=== PATIENT | male | born 1950 | race Caucasian/White ===

== ENCOUNTER → 2019-09-26 | Outpatient (CLI) | payer OTHER ==
[2019-09-26 08:52] LABS: URINE BILIRUBIN NEGATIVE (Negative); URINE BLOOD NEGATIVE (Negative); URINE CLARITY CLEAR; URINE COLOR YELLOW; URINE GLUCOSE-RANDOM NEGATIVE (Negative); URINE KETONES NEGATIVE (Negative); URINE LEUKOCYTES NEGATIVE (Negative); URINE NITRITE NEGATIVE (Negative); URINE PROTEIN NEGATIVE (Negative); URINE UROBILINOGEN 0.2 E.U./dl (0.2-1.0)
[2019-09-26 08:57] LABS: ALBUMIN 4.5 g/dL (3.4-5.0); CALCIUM 8.9 mg/dL (8.5-10.1); CREATININE 1.2 mg/dL (0.6-1.3); POTASSIUM 4.7 mmol/L (3.5-5.1); TOTAL BILIRUBIN 0.6 mg/dL (<0.1-1.0); TOTAL PROTEIN 7.5 g/dL (6.4-8.2)
--- NOTE | 2019-09-26 09:54 | 2DMMODE ---
[place] [address] 2 D/M-MODE ECHOCARDIOGRAM Name: MADONNA CONN Room: [facility]#: [id number] Admission: 09/26/19 Attend Phys: Otis Bowling MD Discharge: Date of : 46 Date of Service: 09/26/19 0954 Report #: [id number] THIS REPORT FOR: cc: FAM - Family physician unknown FAM - Family physician unknown Bao Lawson MD [facility] ~ APPROVED REPORT Study performed: 09/26/2019 08:38:34 EXAM: Comprehensive 2D, Doppler, and color-flow Echocardiogram Patient Location: Out-Patient BSA: 2.08 HR: 72 bpm BP: 120/70 mmHg Other Information Study Quality: Good Indications Atrial Fibrillation Pacemaker 2D Dimensions IVSd: 11.55 (7-11mm) LVOT Diam: 20.83 (18-24mm) LVDd: 45.74 mm PWd: 11.00 (7-11mm) Ascending Ao: 34.09 (22-36mm) LVDs: 27.10 (25-40mm) Aortic Root: 32.94 mm Volumes Left Atrial Volume (Systole) LA ESV Index: 15.00 mL/m2 Aortic Valve AoV Peak Pedro.: 1.13 m/s AO Peak Gr.: 5.11 mmHg LVOT Max P.70 mmHg AO Mean Gr.: 2.81 mmHg LVOT Mean P.24 mmHg LVOT Max V: 0.82 m/s AO V2 VTI: 27.62 cm LVOT Mean V: 0.51 m/s MAK (VTI): 2.28 cm2 LVOT V1 VTI: 18.50 [place] [address] 2 D/M-MODE ECHOCARDIOGRAM Name: MADONNA CONN Room: [facility]#: [id number] Admission: 09/26/19 Attend Phys: Otis Bowling MD Discharge: Date of : 46 Date of Service: 09/26/19 0954 Report #: [id number] E/A Ratio: 0.75 MV Decel. Time: 252.78 ms MV E Max Pedro.: 0.43 m/s MV PHT: 73.31 ms MVA (PHT): 3.00 cm2 TDI E/Lateral E': 4.30 E/Medial E': 5.38 Medial E' Pedro.: 0.08 m/s Lateral E' Pedro.: 0.10 m/s Pulmonary Valve PV Peak Pedro.: 0.81 m/s PV Peak Gr.: 2.64 mmHg Tricuspid Valve RAP Estimate: 5.00 mmHg TR Peak Gr.: 15.49 mmHg RVSP: 20.49 mmHg PA Pressure: 20.49 mmHg Left Ventricle The left ventricle is normal size. There is normal LV segmental wall motion. Borderline concentric left ventricular hypertrophy. Left ventricular systolic function is normal. The left ventricular ejection fraction is within the normal range. LVEF is 55-60%. Grade I - abnormal relaxation pattern. Right Ventricle The right ventricle is normal size. The right ventricular systolic function is normal. Pacemaker lead is present in the right ventricle. Atria The left atrium size is normal. Pacemaker lead is present in the right atrium. Aortic Valve Mild aortic valve sclerosis. Trace aortic regurgitation. There is no aortic valvular stenosis. Mitral Valve The mitral valve is normal in structure. Trace mitral regurgitation. No evidence of mitral valve stenosis. Tricuspid Valve The tricuspid valve is normal in structure. [place] [address] 2 D/M-MODE ECHOCARDIOGRAM Name: MADONNA CONN Room: [facility]#: [id number] Admission: 09/26/19 Attend Phys: Otis Bowling MD Discharge: Date of : 46 Date of Service: 09/26/19 0954 Report #: [id number] Pulmonic Valve The pulmonary valve is normal in structure. There is no pulmonic valvular regurgitation. Great Vessels The aortic root is normal in size. IVC is normal in size and collapses >50% with inspiration. Pericardium There is no pericardial effusion. <Conclusion> The left ventricle is normal size. Borderline concentric left ventricular hypertrophy. Left ventricular systolic function is normal. The left ventricular ejection fraction is within the normal range. LVEF is 55-60%. Grade I - abnormal relaxation pattern. The right ventricle is normal size. The left atrium size is normal. Mild aortic valve sclerosis. Trace aortic regurgitation. There is no aortic valvular stenosis. The mitral valve is normal in structure. The tricuspid valve is normal in structure. IVC is normal in size and collapses >50% with inspiration. There is no pericardial effusion. There is normal LV segmental wall motion. Pacemaker lead is present in the right ventricle. <ELECTRONICALLY SIGNED> By: Bao Lawson MD, FACC 09/26/19 0954 [id number] Bao Lawson MD, FACC /INF
== END ==
LOC: M.LAB 08:22 → M.CRD 08:22
PROVIDERS: ATTEND Orthopaedic Surgery
DX: I35.8 Other nonrheumatic aortic valve disorders (principal); I25.9 Chronic ischemic heart disease, unspecified; E11.9 Type 2 diabetes mellitus without complications